=== PATIENT | male | born 1960 | race Caucasian/White ===

== ENCOUNTER 2016-11-19 13:24 | Emergency (ER) | payer MEDICARE, OTHER ==
[~2016-11-19 13:24] MED LIST: COUMADIN5 MG PO; DOXYCYCLINE HY100 MG PO; KEPPRA500 MG PO
== END 2016-11-19 15:28 | disposition left against medical advice (07) ==
LOC: ER1 13:24
DX: Z53.21 Procedure and treatment not carried out due to patient leaving prior to being seen by health care provider (principal)

== ENCOUNTER 2020-06-19 18:59 | Inpatient (IN) | payer OTHER, MEDICARE ==
[~2020-06-19] VITALS: Ht 157.5 cm; Wt 51.7 kg
[~2020-06-19 18:59] MED LIST changes: +ASPIR 8181 MG PO; +BACTRIM DS TAB1 EACH PO; +CIMETIDINE200 MG PO; +CLINDAMYCIN HC300 MG PO; +JEVITY PEG; +LEVAQUIN500 MG PO; +SELEGILINE HCL5 M1 PO; +SIMVASTATIN20 MG PO; +SYNTHROID100 MCG PO; +TRAZODONE HCL50 MG PO
[2020-06-19 19:44] LABS: RED BLOOD COUNT 4.59 M/UL (4.20-5.50); WHITE BLOOD COUNT 7.1 K/UL (4.5-11.0)
[2020-06-19 20:04] LABS: BUN/CREATININE RATIO 22 (0-10)
[2020-06-20 01:57] LABS: BORDETELLA PARAPERTUSSIS Not Detected (Not Detectd); BORDETELLA PERTUSSIS Not Detected (Not Detectd); CHLAMYDIA PNEUMONIAE Not Detected (Not Detectd); CORONAVIRUS HKU1 Not Detected (Not Detectd); CORONAVIRUS NL63 Not Detected (Not Detectd); CORONAVIRUS OC43 Not Detected (Not Detectd); CORONOAVIRUS 229E Not Detected (Not Detectd); HUMAN METAPNEUMOVIRUS Not Detected (Not Detectd); HUMAN RHINOVIRUS/ENTEROVIRUS Not Detected (Not Detectd); INFLUENZA A Not Detected (Not Detectd); INFLUENZA B Not Detected (Not Detectd); MYCOPLASMA PNEUMONIAE Not Detected (Not Detectd); PARAINFLUENZA VIRUS 1 Not Detected (Not Detectd); PARAINFLUENZA VIRUS 2 Not Detected (Not Detectd); PARAINFLUENZA VIRUS 3 Not Detected (Not Detectd); PARAINFLUENZA VIRUS 4 Not Detected (Not Detectd); RESPIRATORY SYNCYTIAL VIRUS Not Detected (Not Detectd)
[2020-06-20 03:37] LABS: SARS-CoV-2 NOT DETECTED (Not Detectd)
[2020-06-20 06:36] LABS: HEMOGLOBIN 14.3 gm/dl (14.0-17.5); RED BLOOD COUNT 4.18 M/UL (4.20-5.50)
[2020-06-20 06:44] LABS: WHITE BLOOD COUNT 22.4 K/UL (4.5-11.0)
[2020-06-20 07:10] LABS: BUN/CREATININE RATIO 17 (0-10)
[2020-06-20] MEDS ORDERED: JANTOVEN4 MG PEG (10:09)
[2020-06-21 04:59] LABS: HEMOGLOBIN 12.3 gm/dl (14.0-17.5); RED BLOOD COUNT 3.64 M/UL (4.20-5.50)
[2020-06-21 05:39] LABS: BUN/CREATININE RATIO 17 (0-10)
[2020-06-22 02:19] LABS: HEMOGLOBIN 12.3 gm/dl (14.0-17.5); RED BLOOD COUNT 3.55 M/UL (4.20-5.50)
[2020-06-22 02:22] LABS: WHITE BLOOD COUNT 9.7 K/UL (4.5-11.0)
[2020-06-22 02:32] LABS: BUN/CREATININE RATIO 22 (0-10)
[2020-06-23 05:11] LABS: HEMOGLOBIN 12.5 gm/dl (14.0-17.5); RED BLOOD COUNT 3.6 M/UL (4.20-5.50); WHITE BLOOD COUNT 7.4 K/UL (4.5-11.0)
[2020-06-23 05:37] LABS: BUN/CREATININE RATIO 24 (0-10)
[2020-06-24 03:07] LABS: HEMOGLOBIN 12.1 gm/dl (14.0-17.5); RED BLOOD COUNT 3.52 M/UL (4.20-5.50)
[2020-06-24 03:12] LABS: WHITE BLOOD COUNT 4.8 K/UL (4.5-11.0)
[2020-06-24 03:35] LABS: BUN/CREATININE RATIO 22 (0-10)
[2020-06-25 04:03] LABS: HEMOGLOBIN 12.1 gm/dl (14.0-17.5); RED BLOOD COUNT 3.53 M/UL (4.20-5.50)
[2020-06-25 04:07] LABS: WHITE BLOOD COUNT 6.2 K/UL (4.5-11.0)
[2020-06-25 04:33] LABS: BUN/CREATININE RATIO 25 (0-10)
[2020-06-26 02:42] LABS: HEMOGLOBIN 11.4 gm/dl (14.0-17.5); RED BLOOD COUNT 3.33 M/UL (4.20-5.50); WHITE BLOOD COUNT 4.8 K/UL (4.5-11.0)
[2020-06-26 03:22] LABS: BUN/CREATININE RATIO 31 (0-10)
[2020-06-27 03:44] LABS: HEMOGLOBIN 12.1 gm/dl (14.0-17.5); RED BLOOD COUNT 3.55 M/UL (4.20-5.50); WHITE BLOOD COUNT 5.1 K/UL (4.5-11.0)
[2020-06-27 04:12] LABS: BUN/CREATININE RATIO 25 (0-10)
[2020-06-28 05:06] LABS: HEMOGLOBIN 12.2 gm/dl (14.0-17.5); RED BLOOD COUNT 3.57 M/UL (4.20-5.50); WHITE BLOOD COUNT 6.2 K/UL (4.5-11.0)
[2020-06-28 05:26] LABS: BUN/CREATININE RATIO 20 (0-10)
[2020-06-29 03:56] LABS: HEMOGLOBIN 12.1 gm/dl (14.0-17.5); RED BLOOD COUNT 3.58 M/UL (4.20-5.50)
[2020-06-29 04:01] LABS: WHITE BLOOD COUNT 8.4 K/UL (4.5-11.0)
[2020-06-30 03:40] LABS: BUN/CREATININE RATIO 36 (0-10)
[2020-06-30 13:04] LABS: HEMOGLOBIN 11.1 gm/dl (14.0-17.5); RED BLOOD COUNT 3.23 M/UL (4.20-5.50); WHITE BLOOD COUNT 12.4 K/UL (4.5-11.0)
[2020-06-30 15:25] LABS: HEMOGLOBIN 11.6 gm/dl (14.0-17.5); RED BLOOD COUNT 3.39 M/UL (4.20-5.50)
[2020-06-30 15:30] LABS: WHITE BLOOD COUNT 19.2 K/UL (4.5-11.0)
[2020-06-30 15:52] LABS: BUN/CREATININE RATIO 36 (0-10)
--- NOTE | 2020-06-30 17:35 | NUR ---
HOSPITALIST NOTIFIED SEVERAL TIMES THIS MORNING REGARDING PATIENTS OXYGEN STATUS. PATIENT WAS ON 2 L NC THIS MORNING AND HAD TO BE INCREASED TO 5L NC. AT 1430 PATIENT WAS PUT ON A VENTIMASK OF 50% AND 8L. AT 1450 THE VENTIMASK WAS INCREASED TO 15L, O2 SATURATION WAS 86%, HR 110, RESPIRATIONS 30. MD CONTACTED AGAIN AND NOTIFIED OF SITUATION, MD CAME TO THE FLOOR AND ASKED THE RESPIRATORY THERAPIST TO DEEP SUCTION THE PATIENT. AT THIS TIME THE RESPIRATORY THERAPIST SUCTIONED SEVERAL BLOOD CLOTS. MD NOTIFIED OUTSIDE MEDICAL SALES REPRESENTATIVE AND THE ER DOCTOR TO COME INTUBATE THE PATIENT. AT 1530 10MG OF ETOMIDATE GIVEN. 1531 ZEMURON GIVEN. SIZE 8 ET TUBE AT 1533 THAT IS 22 AT THE LIP. DIPRIVAN STARTED AT 1535 HEART RATE WAS 113 BP 107/61 (73). PATIENT WAS THEN TRANSFERRED TO THE ICU AT 1540.
[2020-06-30 23:14] LABS: HEMOGLOBIN 9.8 gm/dl (14.0-17.5)
[2020-07-01 03:56] LABS: HEMOGLOBIN 8.7 gm/dl (14.0-17.5)
[2020-07-01 03:57] LABS: RED BLOOD COUNT 2.56 M/UL (4.20-5.50); WHITE BLOOD COUNT 28.4 K/UL (4.5-11.0)
[2020-07-01 04:16] LABS: BUN/CREATININE RATIO 29 (0-10)
[2020-07-01 13:49] LABS: HEMOGLOBIN 9.1 gm/dl (14.0-17.5)
[2020-07-02 05:44] LABS: HEMOGLOBIN 11.1 gm/dl (14.0-17.5)
[2020-07-03 04:14] LABS: HEMOGLOBIN 9.3 gm/dl (14.0-17.5)
[2020-07-03 04:18] LABS: RED BLOOD COUNT 3.01 M/UL (4.20-5.50); WHITE BLOOD COUNT 15.2 K/UL (4.5-11.0)
[2020-07-03 04:50] LABS: BUN/CREATININE RATIO 21 (0-10)
[2020-07-03 10:08] LABS: BUN/CREATININE RATIO 21 (0-10)
[2020-07-04 03:50] LABS: HEMOGLOBIN 8.2 gm/dl (14.0-17.5); WHITE BLOOD COUNT 14.4 K/UL (4.5-11.0)
[2020-07-04 03:55] LABS: RED BLOOD COUNT 2.6 M/UL (4.20-5.50)
[2020-07-04 04:14] LABS: BUN/CREATININE RATIO 21 (0-10)
[2020-07-05 08:35] LABS: HEMOGLOBIN 8.9 gm/dl (14.0-17.5); RED BLOOD COUNT 2.84 M/UL (4.20-5.50)
[2020-07-05 08:37] LABS: WHITE BLOOD COUNT 3.6 K/UL (4.5-11.0)
[2020-07-06 04:58] LABS: HEMOGLOBIN 8.3 gm/dl (14.0-17.5); RED BLOOD COUNT 2.67 M/UL (4.20-5.50); WHITE BLOOD COUNT 4.2 K/UL (4.5-11.0)
[2020-07-06 05:09] LABS: BUN/CREATININE RATIO 33 (0-10)
[2020-07-07 15:14] LABS: HEMOGLOBIN 8.4 gm/dl (14.0-17.5); RED BLOOD COUNT 2.71 M/UL (4.20-5.50)
[2020-07-07 15:16] LABS: WHITE BLOOD COUNT 15.1 K/UL (4.5-11.0)
[2020-07-07 15:35] LABS: BUN/CREATININE RATIO 42 (0-10); GAMMA GLUTAMYL TRANSPEPTIDASE 106 U/L (7-64)
[2020-07-07 20:18] LABS: RED BLOOD COUNT 2.53 M/UL (4.20-5.50); WHITE BLOOD COUNT 13.3 K/UL (4.5-11.0)
[2020-07-07 20:55] LABS: BUN/CREATININE RATIO 52 (0-10); GAMMA GLUTAMYL TRANSPEPTIDASE 89 U/L (7-64)
[2020-07-08 03:52] LABS: HEMOGLOBIN 8.7 gm/dl (14.0-17.5); RED BLOOD COUNT 2.74 M/UL (4.20-5.50); WHITE BLOOD COUNT 15.9 K/UL (4.5-11.0)
--- NOTE | 2020-07-08 04:12 | NUR ---
07/07/2020 1900---PATIENT IN CARE OF [facility]. CHARTING COMPLETING PER [facility] JAVA GROOVY DEVELOPER AT BEDSIDE. ORDERS TO BE OBTAINED FROM [facility] REP. LABS TO BE REPORTED TO TAL REP. RN CHARTING TO BE DONE ON [facility] FLOW SHEET.
[2020-07-08 04:48] LABS: BUN/CREATININE RATIO 42 (0-10); GAMMA GLUTAMYL TRANSPEPTIDASE 133 U/L (7-64)
[2020-07-08 07:57] LABS: HEMOGLOBIN 7.6 gm/dl (14.0-17.5); WHITE BLOOD COUNT 16.1 K/UL (4.5-11.0)
[2020-07-08 07:58] LABS: RED BLOOD COUNT 2.46 M/UL (4.20-5.50)
[2020-07-08 08:35] LABS: BUN/CREATININE RATIO 49 (0-10); GAMMA GLUTAMYL TRANSPEPTIDASE 124 U/L (7-64)
== END 2020-07-07 12:29 | disposition expired | DRG 870 ==
LOC: ER1 18:59 → PROG CARE 21:29 → CCU 21:29 → CDU 21:29 → CCU 06-20 00:40 → PROG CARE 06-21 19:50 → CCU 06-30 15:41
PROVIDERS: Internal Medicine; Internal Medicine Pulmonary Disease; Physician Assistant; ADMIT Internal Medicine
PROC: 5A1955Z Respiratory Ventilation, Greater than 96 Consecutive Hours (ICD-10-PCS; 2020-06-30)
PROC: 30233K1 Transfusion of Nonautologous Frozen Plasma into Peripheral Vein, Percutaneous Approach (ICD-10-PCS; 2020-06-30)
PROC: 30233H1 Transfusion of Nonautologous Whole Blood into Peripheral Vein, Percutaneous Approach (ICD-10-PCS; 2020-06-30)
PROC: 0B9L7ZX Drainage of Left Lung, Via Natural or Artificial Opening, Diagnostic (ICD-10-PCS; 2020-06-30)
PROC: 0BJK8ZZ Inspection of Right Lung, Via Natural or Artificial Opening Endoscopic (ICD-10-PCS; 2020-06-30)
PROC: 0BH17EZ Insertion of Endotracheal Airway into Trachea, Via Natural or Artificial Opening (ICD-10-PCS; principal; 2020-06-30 16:25)
PROC: 2Y41X5Z Packing of Nasal Region using Packing Material (ICD-10-PCS; 2020-07-01)
DX: A41.51 Sepsis due to Escherichia coli [E. coli] (principal); R65.21 Severe sepsis with septic shock; J96.01 Acute respiratory failure with hypoxia; I61.8 Other nontraumatic intracerebral hemorrhage; J15.212 Pneumonia due to Methicillin resistant Staphylococcus aureus; J69.0 Pneumonitis due to inhalation of food and vomit; G93.6 Cerebral edema; E87.2 Acidosis; R04.2 Hemoptysis; E87.1 Hypo-osmolality and hyponatremia; N30.00 Acute cystitis without hematuria; D62 Acute posthemorrhagic anemia; M62.82 Rhabdomyolysis; Q90.9 Down syndrome, unspecified; R13.10 Dysphagia, unspecified; H91.90 Unspecified hearing loss, unspecified ear; G20 Parkinson's disease; Z95.2 Presence of prosthetic heart valve; Z79.01 Long term (current) use of anticoagulants; I48.0 Paroxysmal atrial fibrillation; E03.9 Hypothyroidism, unspecified; Z88.0 Allergy status to penicillin; I10 Essential (primary) hypertension; R04.0 Epistaxis; H54.8 Legal blindness, as defined in USA; I34.2 Nonrheumatic mitral (valve) stenosis; Z79.82 Long term (current) use of aspirin; Z79.818 Long term (current) use of other agents affecting estrogen receptors and estrogen levels; Z79.899 Other long term (current) drug therapy; F99 Mental disorder, not otherwise specified; R79.1 Abnormal coagulation profile; Z66 Do not resuscitate; I25.10 Atherosclerotic heart disease of native coronary artery without angina pectoris; Z95.1 Presence of aortocoronary bypass graft; E11.9 Type 2 diabetes mellitus without complications; T17.990A Other foreign object in respiratory tract, part unspecified in causing asphyxiation, initial encounter; R53.81 Other malaise; R40.2434 Glasgow coma scale score 3-8, 24 hours or more after hospital admission; Z20.822 Contact with and (suspected) exposure to COVID-19
CPT/HCPCS: ECHO; 31500; 36415; 36430; 36600; 70450; 71045; 71046; 71250; 80048; 80053; 80202; 81001; 82150; 82248; 82330; 82533; 82550; 82553; 82803; 82962; 82977; 83036; 83605; 83615; 83690; 83735; 83880; 84100; 84132; 84484; 85014; 85018; 85025; 85027; 85379; 85384; 85610; 85652; 85730; 86140; 86850; 86900; 86901; 86920; 86927; 87040; 87070; 87077; 87086; 87186; 87205; 87633; 93306; 94002; 94003; 94640; 94664; 94760; 96365; 96366; 96367; 96368; 96375; 97163; 97530-GP-CQ; 99285; A6212; A9512; C9046; C9113; J0171; J0330; J0610; J0692; J1100; J1644; J1650; J1940; J2185; J2250; J2543; J2704; J2720; J2930; J3370; J3430; J3480; J7030; J7040; J7050; J7070; P9016; P9017; U0002

== ENCOUNTER 2020-07-07 12:29 | Inpatient (IN) | payer OTHER ==
[~2020-07-07 12:29] MED LIST changes: +JANTOVEN4 MG PEG
== END 2020-07-08 17:33 | disposition expired | DRG 951 ==
LOC: 2 EAST 12:29
PROVIDERS: ADMIT Internal Medicine
DX: Z53.9 Procedure and treatment not carried out, unspecified reason (principal)
CPT/HCPCS: 36415; 80053; 81001; 82150; 82248; 82803; 82962; 82977; 83690; 83735; 84100; 85025; 85610; 85730; 94003; J0610; J1644; J3480; J7030; J7070